=== PATIENT | male | born 1985 | race Caucasian/White ===

== ENCOUNTER → 2024-09-22 12:11 | Outpatient (CLI) | payer OTHER, SELFPAY ==
--- NOTE | 2024-09-22 | DI.ECHO.S_ITS ---
[facility] : : [address] : : [place] : : [id number] : : Phone: [phone] Echocardiogram Report + + :Name: JU HIDALGO Study Date: 09/22/2024 Height: 74 in : :[facility] ReadingLocation: Weight: 240 lb : : Gender: Male BSA: 2.3 m2 : :: 1985 Age: 38 yrs BP: 132/80 mmHg: :Reason For Study: HYPERTENSION : :Ordering Physician: DAMARIS, : :DARRIAN Performed By: Marquise Fisher : :Referring: [id number] : + + Interpretation Summary Normal sinus rhythm. Normal LV size, wall thickness, wall motion and LV systolic function. EF is 55-60%. Mildly dilated RV; mildly dilated RA. No significant valvular abnormalities. No prior study available for comparison. Procedure: A two-dimensional transthoracic echocardiogram with color flow and Doppler was performed. The study quality was technically good. There is no prior echocardiogram noted for this patient. The patient was in normal sinus rhythm during the exam. Left Ventricle: The left ventricle is normal in size. There is normal left ventricular wall thickness. There is no ventricular septal defect visualized. The ejection fraction is estimated to be 55-60%. There are no focal wall motion abnormalities. Diastolic parameters suggest probable normal left ventricular diastolic function and normal filling pressures. Right Ventricle: The right ventricle is mildly dilated. The right ventricular systolic function is normal. Atria: The left atrial size is normal. The right atrium is mildly dilated. There is no Doppler evidence for an interatrial shunt. Mitral Valve: The mitral valve is normal in structure and function. There is trace mitral regurgitation. Aortic Valve: The aortic valve is trileaflet. The aortic valve opens well. No aortic regurgitation is present. Tricuspid Valve: The tricuspid valve is normal in structure and function. There is mild tricuspid regurgitation. The right ventricular systolic pressure is estimated to be at least 24 mmHg based on an estimated right atrial pressure of 3 mm Hg. Pulmonic Valve: The pulmonic valve is normal in structure and function. There is no pulmonic valvular regurgitation. Great Vessels: The aortic root is normal size. The dimensions of the ascending aorta are normal. The pulmonary artery is normal size. The IVC is of normal diameter and collapses greater than 50% with a sniff. This suggests a low right atrial pressure of 3 mm Hg. Pericardium/ Pleura There is no pericardial effusion. There is no pleural effusion. MMode/2D Measurements & Calculations LVIDd: 4.8 cm LVOT diam: 2.1 cm LVIDs: 3.5 cm Ao root diam: 3.2 cm FS: 27.0 % asc Aorta Diam: 3.2 cm EPSS: 0.40 cm Ao Arch Diam (distal): 2.3 cm IVSd: 0.83 cm LVPWd: 0.80 cm LV rojas. diameter/BSA (cm/m^2): 2.0 LV sys. diameter/BSA (cm/m^2): 1.5 LA A2 area: 19.9 cm2 RA long axis: 5.5 cm LA A4 area: 20.1 cm2 RA area: 18.7 cm2 LA length (vol): 6.0 cm RA vol: 54.0 ml LA vol: 56.6 ml RA : 23.0 ml/m2 LA vol index: 24.1 ml/m2 IVC diam: 1.9 cm RVD1 (basal): 4.6 cm RVD2 (mid): 3.9 cm TAPSE: 2.7 cm Doppler Measurements & Calculations Ao V2 max: 148.5 cm/sec LVOT Max Jovan: 104.5 cm/sec Ao V2 mean: 95.2 cm/sec LV V1 max P.4 mmHg Ao max P.8 mmHg LV V1 VTI: 22.0 cm Ao mean P.2 mmHg MANDA(I,D): 2.6 cm2 Ao V2 VTI: 29.7 cm MANDA(V,D): 2.4 cm2 sev ratio: 0.74 MANDA indexed to BSA (cm^2/m^2): 1.1 MV E max jovan: 83.3 cm/sec TR max jovan: 231.8 cm/sec MV A max jovan: 60.5 cm/sec TR max P.5 mmHg MV E/A: 1.4 PA V2 max: 87.5 cm/sec Med Peak E' Jovan: 10.2 cm/sec PA V2 mean: 63.4 cm/sec E/E' med: 8.2 PA mean P.8 mmHg Lat Peak E' Jovan: 14.6 cm/sec PA pr(Accel): 15.6 mmHg E/E' lat: 5.7 E/e' average: 6.9 MV dec time: 0.27 sec SV(LVOT): 76.0 ml Electronically signed by: Amina Ledezma M.D. on Reading Physician:09/22/2024 11:27 PM
== END ==
LOC: ECHO 12:15
PROVIDERS: Referring Provider Physician Assistant; Visit Provider Physician Assistant
DX: I07.1 Rheumatic tricuspid insufficiency (principal); I10 Essential (primary) hypertension
CPT/HCPCS: 93306